=== PATIENT | female | born 1945 | race Caucasian/White ===

== ENCOUNTER 2024-02-24 20:18 | Inpatient (IN) ==
[2024-02-24 21:45] LABS: ABS Basophils 0.1 10^3/uL (0.0-0.1); ABS Eosinophils 0.1 10^3/uL (0.0-0.5); ABS Lymphocytes 0.2 10^3/uL (1.0-4.8); ABS Monocytes 0.3 10^3/uL (0.0-0.9); ABS Neutrophils 3.4 10^3/uL (1.5-7.6); ABS Nucleated RBC 0.01 10^3/ul; Eosinophil % 3.4 %; Hematocrit 27.4 % (35-45); Hemoglobin 8.5 g/dL (11.5-14.3); Lymphocyte % 4.9 %; Mean Corpuscular Hemoglobin 31.7 pg (27-33); Mean Corpuscular Hgb Conc 31.1 g/dL (31-36); Mean Corpuscular Volume 102.2 fL (80-97); Mean Platelet Volume 10.5 fL (7.5-11.2); Nucleated Red Blood Cells % 0.1 %/100WBC (0.0-0.8); Platelet Count 180 10^3/uL (150-450); Red Blood Count 2.69 10^6/uL (3.63-4.92); Red Cell Distribution Width 22.7 % (12-17); White Blood Count 4.1 10^3/uL (3.8-11.8)
[2024-02-24] MEDS: methylPREDNISolone SOD SUCC 125 mg 2 ML VIAL IV ONE (21:50)
[2024-02-24] MEDS: Albuterol 2.5mg/3 ml (0.083%) NEB.SOLN INH ONE ×2 (22:42→22:53)
[2024-02-24 22:54] LABS: Albumin 3.5 g/dL (3.2-5.2); Albumin/Globulin Ratio 1.3 (1-3); C Reactive Protein 1.22 mg/L (<8.01); Calcium 8.4 mg/dL (8.6-10.3); Creatinine, Serum 1.86 mg/dL (0.51-0.95); Globulin 2.6 g/dL (2-4); Potassium 6.3 mmol/L (3.5-5.0); Total Bilirubin 0.3 mg/dL (0.2-1.0); Total Protein 6.1 g/dL (6.4-8.9); eGFR CKD-EPI 27.6 (>60)
[2024-02-24 23:05] LABS: High Sensitivity Troponin 1 Hr 9 pg/mL (<15)
[2024-02-24] MEDS: NS 0.9% 500 ml BAG 500 ML IV ONE (23:19)
[2024-02-25 00:08] LABS: Anion Gap 10 mmol/L (2-16); Blood Urea Nitrogen 23 mg/dL (6-24); CO2 Carbon Dioxide 11 mmol/L (22-32); Calcium 7.2 mg/dL (8.6-10.3); Chloride 116 mmol/L (101-111); Creatinine, Serum 1.57 mg/dL (0.51-0.95); Glucose 65 mg/dL (70-100); Sodium 137 mmol/L (135-145); eGFR CKD-EPI 33.8 (>60)
[2024-02-25] MEDS: SODIUM ZIRCONIUM CYCLOSILICATE 5 GM PACKET PO SCH (00:39)
[2024-02-25 01:12] LABS: Potassium, Whole Blood 6.7 mmol/L (3.4-4.5)
[2024-02-25] MEDS: Dextrose 50% Syringe 50 ml 25 GM/50 ML SYRINGE IV PUSH ONE ×3 (01:55→06:35)
[2024-02-25] MEDS: CALCIUM GLUCONATE 1GM/50ML NS 1 GM/50 ML BAG IV ONE (01:59)
[2024-02-25] MEDS: Lactated Ringers 1000 ml BAG 500 ML IV ONE (02:01)
[2024-02-25] MEDS: Calcium Gluconate 1 GM/10 ML VIAL (in Pyxis) IV PUSH ONE (02:01)
[2024-02-25 02:25] LABS: PCO2 Arterial 35 mmHg (35-45); PO2 Arterial 81 mmHg (80-100)
[2024-02-25] MEDS ORDERED: Albuterol HFA INHALER 8 gm MDI INH PRN (03:10)
[2024-02-25] MEDS: Sodium Bicarbonate 8.4% SYR 50 ml SYRINGE IV ONE (03:53)
[2024-02-25 04:56] LABS: Hematocrit 25.9 % (35-45); Hemoglobin 8.3 g/dL (11.5-14.3); Mean Corpuscular Hemoglobin 31.7 pg (27-33); Mean Corpuscular Hgb Conc 31.9 g/dL (31-36); Mean Corpuscular Volume 99.2 fL (80-97); Mean Platelet Volume 10.4 fL (7.5-11.2); Platelet Count 166 10^3/uL (150-450); Red Blood Count 2.61 10^6/uL (3.63-4.92); Red Cell Distribution Width 22.7 % (12-17); White Blood Count 3.9 10^3/uL (3.8-11.8)
[2024-02-25 05:12] LABS: Urine Appearance Clear; Urine Bilirubin Negative (Negative); Urine Blood Negative (Negative); Urine Color Light-Yellow; Urine Glucose Negative (Negative); Urine Ketones Negative (Negative); Urine Nitrite Negative (Negative); Urine Protein Trace (Negative); Urine Specific Gravity 1.013 (1.002-1.030); Urine Urobilinogen Negative (Negative)
[2024-02-25 05:18] LABS: Urine Potassium Concentration 66.9 mmol/L
[2024-02-25 05:25] LABS: Urine Bacteria Absent /HPF (Absent); Urine Red Blood Cell Trace(0-2/hpf) /HPF (0-Trace); Urine Squamous Epithelial Cell Present /HPF (Absent); Urine White Blood Cell Trace(0-5/hpf) /HPF (0-Trace)
[2024-02-25 05:34] LABS: % Iron Saturation 31 % (15-55); .Transferrin 114 mg/dL (203-362); Anion Gap 9 mmol/L (2-16); Blood Urea Nitrogen 25 mg/dL (6-24); CO2 Carbon Dioxide 20 mmol/L (22-32); Calcium 8.7 mg/dL (8.6-10.3); Chloride 112 mmol/L (101-111); Creatine Kinase 26 U/L (10-223); Creatinine, Serum 1.77 mg/dL (0.51-0.95); Glucose 99 mg/dL (70-100); Iron 49 ug/dL (50-212); Magnesium 1.4 mg/dL (1.9-2.7); Phosphorus 2.7 mg/dL (2.5-5.0); Potassium 6.3 mmol/L (3.5-5.0); Sodium 141 mmol/L (135-145); Total Iron Binding Capacity 160 mcg/dL (250-450); Unsaturated Iron Binding 111 ug/dL; eGFR CKD-EPI 29.2 (>60)
[2024-02-25] MEDS ORDERED: Dextrose 50% VIAL 50 ml IV PRN (05:41)
[2024-02-25 05:42] LABS: TSH Ultra Thyroid Stim Horm 1.24 mcIU/mL (0.34-5.60)
[2024-02-25] MEDS ORDERED: Dextrose 50% VIAL 50 ml IV ONE (05:46)
[2024-02-25 05:47] LABS: Calcium 8.7 mg/dL (8.6-10.3); Creatinine, Serum 1.76 mg/dL (0.51-0.95); Potassium 6.3 mmol/L (3.5-5.0); eGFR CKD-EPI 29.4 (>60)
[2024-02-25 05:48] LABS: Ferritin 185.2 ng/mL (11-307)
[2024-02-25 06:03] LABS: Folate 7.63 ng/mL (5.90-24.80); Vitamin B12 91 pg/mL (180-914); Vitamin D Total 25(OH) < 7.0 ng/mL (20-50)
[2024-02-25 06:24] LABS: PCO2 Arterial 41 mmHg (35-45); PO2 Arterial 106 mmHg (80-100)
[2024-02-25] MEDS: Lactated Ringers 1000 ml BAG 1,000 ML IV SCH (06:47)
[2024-02-25 07:08] LABS: Activated Partial Thrombo Time 26.7 seconds (26.0-38.0)
[2024-02-25] MEDS: Magnesium Sulf 4 GM/100 ML IV 4,000 MG/100 ML BAG IVPB ONE (08:24)
[2024-02-25 08:33] LABS: Calcium 8.3 mg/dL (8.6-10.3); Creatinine, Serum 1.75 mg/dL (0.51-0.95); eGFR CKD-EPI 29.6 (>60)
[2024-02-25 08:36] LABS: Venous Bicarbonate HCO3 20.4 mmol/L (24-28)
[2024-02-25] MEDS: SPIRIVA Respimat (tiotropium) 2.5 mcg/inh Inhaler INH SCH (09:40)
[2024-02-25] MEDS: Mometasone/Formoter 100/5 MDI INH SCH (09:40)
[2024-02-25] MEDS: Cyanocobalamin INJ 1,000 MCG/ML VIAL 1 ML VIAL IM SCH (09:41)
[2024-02-25 12:58] LABS: Calcium 8.7 mg/dL (8.6-10.3); Creatinine, Serum 1.68 mg/dL (0.51-0.95); Potassium 5.4 mmol/L (3.5-5.0); eGFR CKD-EPI 31.1 (>60)
[2024-02-25] MEDS: SODIUM ZIRCONIUM CYCLOSILICATE 5 GM PACKET PO ONE (13:45)
[2024-02-25] MEDS: Azithromycin 500 mg/250 ml NS 500 MG/250 ML BAG IVPB SCH (14:51)
[2024-02-25 16:21] LABS: Calcium 7.9 mg/dL (8.6-10.3); Creatinine, Serum 1.65 mg/dL (0.51-0.95); Potassium 5.1 mmol/L (3.5-5.0); eGFR CKD-EPI 31.8 (>60)
[2024-02-25] MEDS: Heparin 5000 UNITS/ML 1 mL VIAL SUBCUT SCH (20:22)
[2024-02-25] MEDS: Sodium Bicarbonate 8.4% IV 150 MEQ in D5W 1000 ML BAG 850 ML IV SCH (20:23)
[2024-02-25 21:01] LABS: Calcium 7.9 mg/dL (8.6-10.3); Creatinine, Serum 1.69 mg/dL (0.51-0.95); Potassium 4.9 mmol/L (3.5-5.0); eGFR CKD-EPI 30.9 (>60)
[2024-02-26 05:49] LABS: Venous Bicarbonate HCO3 27.8 mmol/L (24-28)
[2024-02-26 05:54] LABS: ABS Lymphocytes 0.5 10^3/uL (1.0-4.8); ABS Monocytes 0.5 10^3/uL (0.0-0.9); ABS Neutrophils 4.2 10^3/uL (1.5-7.6); ABS Nucleated RBC 0.01 10^3/ul; Eosinophil % 0.3 %; Hematocrit 25.4 % (35-45); Lymphocyte % 8.8 %; Mean Corpuscular Hemoglobin 31.2 pg (27-33); Mean Corpuscular Hgb Conc 31.6 g/dL (31-36); Mean Corpuscular Volume 98.5 fL (80-97); Mean Platelet Volume 10.4 fL (7.5-11.2); Nucleated Red Blood Cells % 0.2 %/100WBC (0.0-0.8); Platelet Count 141 10^3/uL (150-450); Red Blood Count 2.58 10^6/uL (3.63-4.92); Red Cell Distribution Width 22.6 % (12-17); White Blood Count 5.2 10^3/uL (3.8-11.8)
[2024-02-26 06:29] LABS: Calcium 7.5 mg/dL (8.6-10.3); Creatinine, Serum 1.55 mg/dL (0.51-0.95); Magnesium 2.7 mg/dL (1.9-2.7); Phosphorus 4.1 mg/dL (2.5-5.0); Potassium 3.8 mmol/L (3.5-5.0); eGFR CKD-EPI 34.3 (>60)
[2024-02-26] MEDS ORDERED: Dextrose 50% Syringe 50 ml 25 GM/50 ML SYRINGE IV PUSH PRN (06:45)
[2024-02-26 10:29] LABS: PCO2 Arterial 65 mmHg (35-45); PO2 Arterial 109 mmHg (80-100)
[2024-02-26] MEDS: Influenza Vaccine *TRI* 2024-25* 0.5 ML SYRINGE IM ONE (10:35)
[2024-02-26] MEDS: Lactated Ringers 1000 ml BAG 1,000 ML IV ONE (10:35)
[2024-02-26] MEDS: Calcium Carb (TUMS) 500 mg CHEW TAB PO SCH (14:09)
[2024-02-26] MEDS ORDERED: Sulfur Hexaflouride MICROSPHR 25 MG VIAL IV PRN (14:45)
[2024-02-26 15:02] LABS: Venous Bicarbonate HCO3 27.7 mmol/L (24-28)
[2024-02-26 15:59] LABS: Albumin 2.7 g/dL (3.2-5.2); Albumin/Globulin Ratio 1.4 (1-3); Calcium 7.5 mg/dL (8.6-10.3); Creatinine, Serum 1.39 mg/dL (0.51-0.95); Globulin 1.9 g/dL (2-4); Magnesium 2.3 mg/dL (1.9-2.7); Potassium 3.7 mmol/L (3.5-5.0); Total Bilirubin 0.2 mg/dL (0.2-1.0); Total Protein 4.6 g/dL (6.4-8.9); eGFR CKD-EPI 39.1 (>60)
[2024-02-26] MEDS: Albuterol/Ipratropium NEB.SOL (2.5/0.5 MG) 3 ML NEB.SOLN INH PRN (17:30)
[2024-02-27 07:14] LABS: ABS Lymphocytes 0.2 10^3/uL (1.0-4.8); ABS Monocytes 0.5 10^3/uL (0.0-0.9); ABS Neutrophils 4.3 10^3/uL (1.5-7.6); ABS Nucleated RBC 0.01 10^3/ul; Eosinophil % 0.3 %; Hematocrit 23.9 % (35-45); Hemoglobin 7.8 g/dL (11.5-14.3); Lymphocyte % 3.9 %; Mean Corpuscular Hemoglobin 32.2 pg (27-33); Mean Corpuscular Hgb Conc 32.5 g/dL (31-36); Nucleated Red Blood Cells % 0.1 %/100WBC (0.0-0.8); Platelet Count 123 10^3/uL (150-450); Red Blood Count 2.41 10^6/uL (3.63-4.92); Red Cell Distribution Width 22.5 % (12-17)
[2024-02-27 07:28] LABS: Calcium 7.7 mg/dL (8.6-10.3); Creatinine, Serum 1.24 mg/dL (0.51-0.95); Phosphorus 2.8 mg/dL (2.5-5.0); Potassium 4.1 mmol/L (3.5-5.0); eGFR CKD-EPI 44.8 (>60)
[2024-02-27] MEDS: Metoprolol Tartrate 5 mg VIAL 5 ml VIAL (1 mg/ml) IV ONE (23:12)
[2024-02-27] MEDS: Enoxaparin 40 MG/0.4 ML SYR SUBCUT ONE (23:19)
[2024-02-28] MEDS: Lactated Ringers 1000 ml BAG 1,000 ML IV SCH ×2 (03:32→15:59)
[2024-02-28 04:15] LABS: Creatinine, Serum 1.25 mg/dL (0.51-0.95); Magnesium 1.7 mg/dL (1.9-2.7); eGFR CKD-EPI 44.4 (>60)
[2024-02-28] MEDS: Magnesium Sulf 4 GM/100 ML IV 4,000 MG/100 ML BAG IVPB ONE (05:33)
[2024-02-28 08:52] LABS: Hematocrit 20.5 % (35-45); Hemoglobin 6.7 g/dL (11.5-14.3); Mean Corpuscular Hemoglobin 31.5 pg (27-33); Mean Corpuscular Hgb Conc 32.4 g/dL (31-36); Mean Corpuscular Volume 97.2 fL (80-97); Red Blood Count 2.11 10^6/uL (3.63-4.92); Red Cell Distribution Width 22.3 % (12-17); White Blood Count 5.4 10^3/uL (3.8-11.8)
[2024-02-28 09:19] LABS: ABS Lymphocytes 0.3 10^3/uL (1.0-4.8); ABS Monocytes 0.6 10^3/uL (0.0-0.9); ABS Neutrophils 4.4 10^3/uL (1.5-7.6); ABS Nucleated RBC 0.05 10^3/ul; Anisocytosis 2+; Basophilic Stippling 1+; Eosinophil % 0.1 %; Lymphocyte % 5.1 %; Mean Platelet Volume 10.2 fL (7.5-11.2); Nucleated Red Blood Cells % 0.9 %/100WBC (0.0-0.8); Platelet Count 100 10^3/uL (150-450)
[2024-02-28] MEDS: Magnesium Sulfate 2 gm BAG 2 GM/50 ML BAG IVPB ONE (09:35)
[2024-02-28 11:06] LABS: Calcium 7.9 mg/dL (8.6-10.3); Creatinine, Serum 1.19 mg/dL (0.51-0.95); Magnesium 3.2 mg/dL (1.9-2.7); Phosphorus 2.4 mg/dL (2.5-5.0); Potassium 3.9 mmol/L (3.5-5.0); eGFR CKD-EPI 47.1 (>60)
[2024-02-28 12:24] LABS: Hematocrit 24.4 % (35-45); Hemoglobin 7.4 g/dL (11.5-14.3)
[2024-02-28] MEDS: dilTIAZem 30 MG TAB PO SCH (14:42)
[2024-02-29 06:37] LABS: Hematocrit 25.8 % (35-45); Hemoglobin 8.5 g/dL (11.5-14.3); Mean Corpuscular Hemoglobin 32.4 pg (27-33); Mean Corpuscular Hgb Conc 33.1 g/dL (31-36); Mean Platelet Volume 10.9 fL (7.5-11.2); Platelet Count 125 10^3/uL (150-450); Red Blood Count 2.63 10^6/uL (3.63-4.92); Red Cell Distribution Width 22.6 % (12-17); White Blood Count 6.7 10^3/uL (3.8-11.8)
[2024-02-29 06:52] LABS: Calcium 7.9 mg/dL (8.6-10.3); Creatinine, Serum 0.89 mg/dL (0.51-0.95); Magnesium 2.2 mg/dL (1.9-2.7); eGFR CKD-EPI 66.7 (>60)
[2024-02-29] MEDS ORDERED: Senna TAB 8.6 mg TAB PO PRN (10:34)
[2024-02-29] MEDS ORDERED: Atropine 1% (ORAL/SL) 15 ML BTL SL PRN (10:34)
[2024-02-29] MEDS ORDERED: Ondansetron ODT 4 mg TAB 4 MG TAB SL PRN (10:34)
[2024-02-29 12:27] LABS: Kappa Free Light Chain 3.35 mg/dL; Lambda Free Light Chain, S 2.41 mg/dL
[2024-02-29 16:36] LABS: Flag, M-protein Isotype Negative (Negative); Immunoglobulin A (IgA), S 417 mg/dL (61 - 356); Immunoglobulin G (IgG), S 541 mg/dL (767 - 1590); Immunoglobulin M (IgM), S 32 mg/dL (37 - 286)
[2024-02-29 18:32] VITALS: BP 105/68
[2024-03-01] MEDS: Morphine ORAL CONCENTRATE 5 MG/0.25 ML ORAL.SYRIN PO PRN (05:11)
== END 2024-03-01 14:09 | disposition hospice, home (50) | DRG 640 ==
LOC: ED 20:18 → SUATTDRO 02-25 00:12 → EDHOLD 02-25 00:12 → MED 02-25 09:19
PROVIDERS: ADMIT Internal Medicine; ATTEND Internal Medicine